=== PATIENT | male | born 1975 ===

== ENCOUNTER 2023-07-13 16:17 | Emergency (ER) | payer MEDICAID ==
[~2023-07-13] VITALS: Ht 180.3 cm; Wt 110.0 kg
[2023-07-13 16:23] VITALS: BP 157/102; PULSE 92; RESP 18; TEMP 98; O2SAT 98
[2023-07-13] MEDS ORDERED: diphenhydrAMINE 50 mg/ml inj IV ONE (16:30)
[2023-07-13] MEDS ORDERED: methylPREDNISolone sod succ 125mg/2ml vial IV ONE (16:30)
[2023-07-13] MEDS ORDERED: normal saline 1000ml 1,000 ML IV ONE (16:30)
[2023-07-13] MEDS ORDERED: VANCOMYCIN 1,500MG inj. 1,500 MG in normal saline 500ml IV soln 300 ML IV SCH (20:00)
== END 2023-07-13 18:06 | disposition left against medical advice (07) ==
LOC: ER 16:18
DX: T23.001A Burn of unspecified degree of right hand, unspecified site, initial encounter (principal); T23.002A Burn of unspecified degree of left hand, unspecified site, initial encounter; L03.114 Cellulitis of left upper limb; L03.115 Cellulitis of right lower limb; Z79.899 Other long term (current) drug therapy; Z53.21 Procedure and treatment not carried out due to patient leaving prior to being seen by health care provider; X08.8XXA Exposure to other specified smoke, fire and flames, initial encounter; Y93.89 Activity, other specified; Y92.89 Other specified places as the place of occurrence of the external cause; Y99.8 Other external cause status
CPT/HCPCS: 71045; 93005; 99281